=== PATIENT | female | born 1945 | race Caucasian/White ===

== ENCOUNTER 2024-06-28 07:23 | Emergency (ER) | payer MEDICARE, BC, SELFPAY ==
[2024-06-28 07:38] VITALS: BP 124/79; PULSE 74; RESP 18; TEMP 36.9; O2SAT 97; BMI 19.9
[2024-06-28 08:07] LABS: Collection Type, Urine Clean Catch
[2024-06-28 08:44] LABS: Bacteria,Urine 1+; Bilirubin,Urine Negative (Negative); Blood,Urine 3+ (Negative); Budding Yeast,Urine Present; Glucose, Urine Negative (Negative); Ketones,Urine Negative (Negative); Leukocyte Esterase,Urine Positive (Negative); Nitrite,Urine Negative (Negative); PH,Urine 7.5 (5.0-7.0); Protein,Urine 2+ (Neg - Trace); RBC,Urine 927 /hpf (0-3); Specific Gravity,Urine 1.019 (1.001-1.035); Squamous Epithelial Cell,Urine 5 /hpf (0-5); Urobilinogen,Urine Negative mg/dL (0.0-1.0); WBC,Urine 2437 /hpf (0-5)
[2024-06-28 08:49] LABS: Color,Urine Lt Yellow (Lt Yel-Yel)
[2024-06-28 08:50] LABS: Clarity,Urine Cloudy (Clear/Hazy); Culture Indicated,Urine Yes
--- NOTE | 2024-06-28 08:50 | EDNOTE_ITS ---
ED Female Urogenital RME/HPI General Chief complaint: Urogenital-Female Stated complaint: Painful urination X 2 days Time Seen by Provider: 06/28/24 07:31 Arrival date/time: 06/28/24 07:23 78-year-old female presents the emergency department complains of dysuria ongoing x 2 days patient reports no nausea no vomiting no fever and no back pain Limitations: no limitations Related Data Home Medications ?Medication ?Instructions ?Recorded ?Confirmed fluticasone propionate 50 50 mcg intranasal DAILY 07/09/19 01/20/23 mcg/actuation nasal spray,suspension (Flonase Allergy Relief) valsartan 80 mg tablet (Diovan) 80 mg PO QDAY 07/09/19 01/20/23 Previous Rx's ?Medication ?Instructions ?Recorded ciprofloxacin HCl 500 mg tablet 500 mg PO BID 7 days #14 tabs 06/28/24 fluconazole 150 mg tablet 150 mg PO Q3D 1 dose #1 tab 06/28/24 ibuprofen 600 mg tablet 600 mg PO Q6H #30 tabs 06/28/24 phenazopyridine 100 mg tablet 100 mg PO TID 2 days #6 tabs 06/28/24 (Pyridium) Allergies Allergy/AdvReac Type Severity Reaction Status Date / Time valsartan Allergy Severe Hives Verified 01/20/23 10:16 Penicillins Allergy Verified 07/10/19 12:45 Review of Systems Review of Systems Systems Reviewed: All systems reviewed, normal except as documented Constitutional Constitutional: Reports system reviewed and no additional complaints, except as documented, Denies fever(s) and Denies headache(s) Eyes Eyes: Reports system reviewed and no additional complaints, except as documented and Denies blurry vision ENT Ears, Nose, Mouth, and Throat: Reports system reviewed and no additional complaints, except as documented, Denies headache(s), Denies nasal congestion and Denies nasal discharge Cardiovascular Cardiovascular: Reports system reviewed and no additional complaints, except as documented, Denies chest pain and Denies dyspnea Respiratory Respiratory: Reports system reviewed and no additional complaints, except as documented, Denies chest congestion, Denies cough and Denies dyspnea Gastrointestinal Gastrointestinal: Reports system reviewed and no additional complaints, except as documented and Denies abdominal pain Genitourinary Genitourinary: Reports system reviewed and no additional complaints, except as documented, Reports dysuria and Reports pelvic pain Integumentary/Breasts Skin/Breast: Reports system reviewed and no additional complaints, except as documented and Denies rash Neurologic Neurologic: Reports system reviewed and no additional complaints, except as documented, Reports as per HPI and Denies headache(s) Past Medical History Past Medical History NEUROLOGIC: Negative Neurological Disorders CARDIAC: Negative Cardiac Disorders ED Exam General Limitations: Present no limitations General appearance: Present alert and in no apparent distress Head Head exam: Present atraumatic Eye Eye exam: Present normal appearance, PERRL and EOMI ENT ENT exam: Present normal exam, normal oropharynx and mucous membranes moist Neck Neck exam: Present normal inspection, full ROM and trachea midline Chest Chest inspection: Present normal inspection and symmetric chest wall rise Respiratory Respiratory exam: Present normal lung sounds bilaterally; Absent respiratory distress Cardiovascular Cardiovascular exam: Present regular rate, normal rhythm and normal heart sounds Abdominal Exam Abdominal exam: Present soft and normal bowel sounds; Absent distention, tenderness, guarding, rebound or rigidity Extremities Exam Extremities exam: Present normal inspection and full ROM Back Exam Back exam: Present normal inspection and full ROM Neurological Exam Neurological exam: Present alert, oriented X3 and CN II-XII intact Psychiatric Psychiatric exam: Present normal affect and normal mood Skin Skin exam: Present warm, dry, intact and normal color Course Quality Measures none Orders Category Date Time Status UA, C/S IF [Urinalysis, C/S if Indicated] Stat Lab 06/28/24 07:58 Completed Urine Culture Stat Lab 06/28/24 07:58 Received Fluconazole [Diflucan] Med 06/28/24 08:50 Discontinued 150 mg PO X1 ONE Lidocaine 1% 20 ml [Xylocaine 1% 20 ML] Med 06/28/24 08:53 Discontinued 2.1 ml INFL X1 ONE cefTRIAXone [Rocephin] Med 06/28/24 08:53 Discontinued 1,000 mg IM X1 ONE Vital Signs Vital signs: Vital Signs Temperature 98.5 F 06/28/24 07:38 Pulse Rate 74 06/28/24 07:38 Respiratory Rate 18 06/28/24 07:38 Blood Pressure 124/79 06/28/24 07:38 Pulse Oximetry (%) 97 06/28/24 07:38 Oxygen Delivery Method Room Air 06/28/24 07:38 O2 saturation 97% room air within normal limits Urogenital - Female MDM Narrative MDM Narrative:: 78-year-old female presents the emergency department complains of dysuria ongoing x 2 days patient reports no nausea no vomiting no fever and no back pain On exam patient does not appear ill or toxic and in no acute distress patient has soft nontender abdomen patient does report pelvic pain On exam patient has no CVA tenderness Patient afebrile hemodynamically stable Urinalysis obtained consistent with UTI and yeast infection Patient given Rocephin here as well as Diflucan Patient instructed to return tomorrow for repeat injection of Rocephin At time of discharge patient well-appearing and in no acute distress Patient data External records reviewed:: [facility] previous records Clinical information provided by:: patient Social determinants that could affect healthcare access:: none Patient has the following chronic illnesses:: None How is presenting disease/condition affected by chronic disease/condition?: no chronic disease Evaluation data The following diagnostics were reviewed and interpreted by me:: lab results Lab and/or radiology exams considered but not ordered:: Labs obtained Interpretation Summary: Reviewed by me Medications / Prescriptions Medications or Prescriptions considered but not ordered:: Given Medication administrations:: Medication Administration History Discontinued Medications Ceftriaxone Sodium (Ceftriaxone Sod Inj 1,000 Mg Vial) 1,000 mg IM X1 ONE Stop: 06/28/24 08:54 Last Admin: 06/28/24 09:00 Dose: 1,000 mg Documented By: ALEJANDRO Fluconazole (Fluconazole 150 Mg Tablet) 150 mg PO X1 ONE Stop: 06/28/24 08:51 Last Admin: 06/28/24 08:59 Dose: 150 mg Documented By: ALEJANDRO Lidocaine HCl (Lidocaine Hcl 1% 20 Ml Vial) 2.1 ml INFL X1 ONE Stop: 06/28/24 08:54 Last Admin: 06/28/24 09:00 Dose: 2.1 ml Documented By: ALEJANDRO Given Consultations Consultation(s) initiated? (list below): No Diagnosis Urogenital Female Differential Diagnosis: urinary tract infection and cystitis Most likely diagnosis given after review of the tests above:: UTI Admission Indicated Admission indicated?: not indicated Admission Request Was there a request for admission?: No Disposition Plan Disposition Plan: Discharge Discharge Attestation Discharge Attestation: The patient and all family members were given an opportunity to ask questions and understood the discharge instructions. Discharge instructions specifically effects, indications for sooner follow up or return to the emergency department, and the expected course of current diagnosis. Patient condition: Stable Discharge Plan Plan Patient Disposition: HOME (Self Care) Disposition Comment: Stable Prescriptions/Referrals Prescriptions/Med Rec: New ciprofloxacin HCl 500 mg tablet 500 mg PO BID 7 Days Qty: 14 0RF phenazopyridine [Pyridium] 100 mg tablet 100 mg PO TID 2 Days Qty: 6 0RF ibuprofen 600 mg tablet 600 mg PO Q6H Qty: 30 0RF fluconazole 150 mg tablet 150 mg PO Q3D Qty: 1 0RF No Action valsartan [Diovan] 80 mg Tablet 80 mg PO QDAY Rx Instructions: only at PM fluticasone propionate [Flonase Allergy Relief] 50 mcg/actuation [place],Suspension 50 mcg intranasal DAILY Referrals: Lesly Mejias DO [Primary Care Provider] - 06/29/24 Problem List Clinical Impression: Urinary tract infection, Vaginal yeast infection Patient/Caregiver Discharge Instructions Education Materials: Anatomy of the Female Urinary Tract Additional Instructions: Please return tomorrow for repeat dose of antibiotics for worsening symptoms or concerns return to the ER immediately Print Language: Albanian Stand Alone Forms: Tsering Award Info., Patient Portal Info Letter PA/[employer] Supervising Physician EUNICE/CONNIE Supervising Physician: Dr Alfaro
[2024-06-28] MEDS: FLUCONAZOLE 150 MG TABLET PO (08:59)
[2024-06-28] MEDS: cefTRIAXone SOD INJ 1,000 MG VIAL 1000 MG IM (09:00)
[2024-06-28] MEDS: LIDOCAINE HCL 1% 20 ML VIAL 2.1 ML INFL (09:00)
== END 2024-06-28 09:29 | disposition home or self-care (01) ==
PROVIDERS: Nurse Practitioner Primary Care; Emergency Provider Emergency Medicine; PCP Internal Medicine
DX: N39.0 Urinary tract infection, site not specified (principal); B37.31 Acute candidiasis of vulva and vagina
CPT/HCPCS: 81001; 87077; 87086; 87186; 96372; 99283; J0696; J3490; A9270

== ENCOUNTER 2024-07-01 10:58 | Emergency (ER) | payer MEDICARE, BC, SELFPAY ==
[2024-07-01 11:29] VITALS: BP 174/75; PULSE 75; RESP 17; TEMP 36.6; O2SAT 97; BMI 19.2
--- NOTE | 2024-07-01 11:38 | EDNOTE_ITS ---
<Statement entered by Leia Desai MD - 07/08/24 14:45> As co-signing physician, I was present and available for consult prn. I concur with the plan and care as documented by the midlevel provider. ED General RME/HPI General Chief complaint: General Adult/Misc Complain Stated complaint: FOLLOW UP FOR UTI Time Seen by Provider: 07/01/24 11:30 Source: patient Arrival date/time: 07/01/24 10:58 78-year-old female with no known medical history presents to the emergency room with a chief complaint of needing an antibiotic shot for a follow-up for her UTI. Mode of arrival: ambulatory Limitations: no limitations Related Data Home Medications ?Medication ?Instructions ?Recorded ?Confirmed fluticasone propionate 50 50 mcg intranasal DAILY 07/09/19 01/20/23 mcg/actuation nasal spray,suspension (Flonase Allergy Relief) valsartan 80 mg tablet (Diovan) 80 mg PO QDAY 07/09/19 01/20/23 Previous Rx's ?Medication ?Instructions ?Recorded ciprofloxacin HCl 500 mg tablet 500 mg PO BID 7 days #14 tabs 06/28/24 fluconazole 150 mg tablet 150 mg PO Q3D 1 dose #1 tab 06/28/24 ibuprofen 600 mg tablet 600 mg PO Q6H #30 tabs 06/28/24 Allergies Allergy/AdvReac Type Severity Reaction Status Date / Time valsartan Allergy Severe Hives Verified 07/01/24 11:01 Penicillins Allergy Verified 07/01/24 11:01 Review of Systems Review of Systems Systems Reviewed: All systems reviewed, normal except as documented Constitutional Constitutional: Reports system reviewed and no additional complaints, except as documented, Denies fatigue, Denies fever(s), Denies headache(s) and Denies weakness Eyes Eyes: Reports system reviewed and no additional complaints, except as documented, Denies blurry vision and Denies change in vision ENT Ears, Nose, Mouth, and Throat: Reports system reviewed and no additional complaints, except as documented, Denies otalgia, Denies headache(s), Denies nasal congestion, Denies throat swelling and Denies vertigo Cardiovascular Cardiovascular: Reports system reviewed and no additional complaints, except as documented, Denies chest pain, Denies dyspnea and Denies dyspnea on exertion Respiratory Respiratory: Reports system reviewed and no additional complaints, except as documented, Denies chest congestion, Denies cough, Denies dyspnea, Denies dyspnea on exertion and Denies wheezing Gastrointestinal Gastrointestinal: Reports system reviewed and no additional complaints, except as documented, Denies abdominal pain, Denies cramping, Denies nausea and Denies vomiting Genitourinary Genitourinary: Reports system reviewed and no additional complaints, except as documented Musculoskeletal Musculoskeletal: Reports system reviewed and no additional complaints, except as documented and Denies back pain Integumentary/Breasts Skin/Breast: Reports system reviewed and no additional complaints, except as documented and Denies wounds Neurologic Neurologic: Reports system reviewed and no additional complaints, except as documented, Denies confusion, Denies headache(s), Denies lack of coordination, Denies vertigo and Denies weakness Psychiatric Psychiatric: Reports system reviewed and no additional complaints, except as documented, Denies anxiety, Denies confusion, Denies depression, Denies paranoia, Denies suicidal ideation and Denies tactile hallucinations Endocrine Endocrine: Reports system reviewed and no additional complaints, except as documented and Denies fatigue Hematologic/Lymphatic Hematologic/Lymphatic: Reports system reviewed and no additional complaints, except as documented and Denies lymphadenopathy Allergic/Immunologic Allergic/Immunologic: Reports system reviewed and no additional complaints, except as documented, Denies throat swelling, Denies urticaria and Denies wheezing Past Medical History Past Medical History NEUROLOGIC: Negative Neurological Disorders or Seizures CARDIAC: Positive Hypertension; Negative Cardiac Disorders or Congestive Heart Failure RESPIRATORY: Negative Chronic Obstructive Pulmonary Disease (COPD) GASTROINTESTINAL: Negative Gastrointestinal Disorders GENITOURINARY: Negative Genitourinary Disorders or Renal Disease MUSCULOSKELETAL: Positive Arthritis; Negative Musculoskeletal Disorders ENDOCRINE: Negative Endocrine Disorders, Diabetes Mellitus Type 1 or Diabetes Mellitus Type 2 HEMATOLOGIC: Negative Blood Disorders OTHER HISTORY: Negative Autoimmune Disease, Blood Transfusions, Blood Transfusion Reaction, Anesthesia Reactions, Organ Transplant, MRSA, Clostridium Difficile or Cancer Family History FAMILY HISTORY: Negative Family Neurologic Problems or Family Cardiac Disorders Surgical History SURGICAL: Positive Tonsillectomy; Negative Nephrectomy, Joint Replacement, Neurologic Surgery, Vasectomy or Organ Transplant Social History SMOKING STATUS: Never smoker SUBSTANCE USE: does not use ED Exam General Limitations: Present no limitations General appearance: Present alert and in no apparent distress Head Head exam: Present atraumatic Eye Eye exam: Present normal appearance, PERRL and EOMI ENT ENT exam: Present normal exam, normal oropharynx and mucous membranes moist Neck Neck exam: Present normal inspection, full ROM and trachea midline Chest Chest inspection: Present normal inspection and symmetric chest wall rise Respiratory Respiratory exam: Present normal lung sounds bilaterally Cardiovascular Cardiovascular exam: Present regular rate, normal rhythm and normal heart sounds Abdominal Exam Abdominal exam: Present soft and normal bowel sounds Extremities Exam Extremities exam: Present normal inspection and full ROM Back Exam Back exam: Present normal inspection and full ROM Neurological Exam Neurological exam: Present alert, oriented X3 and CN II-XII intact Psychiatric Psychiatric exam: Present normal affect and normal mood Skin Skin exam: Present warm, dry, intact and normal color Course Quality Measures none Orders Category Date Time Status cefTRIAXone [Rocephin] 1,000 mg Med 07/01/24 11:37 Discontinued Lidocaine 1% 20 ml [Xylocaine 1% 20 ML] 2.1 ml IM X1 Vital Signs Vital signs: Vital Signs Temperature 97.9 F 07/01/24 11:29 Pulse Rate 75 07/01/24 11:29 Respiratory Rate 17 07/01/24 11:29 Blood Pressure 174/75 H 07/01/24 11:29 Pulse Oximetry (%) 97 07/01/24 11:29 Oxygen Delivery Method Room Air 07/01/24 11:29 O2 saturation 97% within normal limits [facility] Patient data External records reviewed:: [facility] previous records Clinical information provided by:: patient Social determinants that could affect healthcare access:: none Patient has the following chronic illnesses:: No chronic illness How is presenting disease/condition affected by chronic disease/condition?: no chronic disease Evaluation data The following diagnostics were reviewed and interpreted by me:: lab results and radiology exam(s) Lab and/or radiology exams considered but not ordered:: Labs and radiology exams considered and ordered Interpretation Summary: N/A Medications Medications considered but not ordered:: Medication given Medication administrations:: Medication Administration History Discontinued Medications Ceftriaxone Sodium 1,000 mg/ (Lidocaine HCl 2.1 ml) 0 mg IM X1 ONE Stop: 07/01/24 11:38 Last Admin: 07/01/24 12:00 Dose: 1,000 mg Documented By: THOM Medication given Consultations Consultation(s) initiated? (list below): No Diagnosis Differential Diagnosis ED Complaint MDM: Urinary tract infection/fungal infection Most likely diagnosis given after review of the tests above:: Urinary tract infection Admission Indicated Admission indicated?: not indicated Explain why admission is indicated or not indicated:: N/A Admission Request Was there a request for admission?: No Disposition Plan Disposition Plan: Discharge Discharge Attestation Discharge Attestation: The patient and all family members were given an opportunity to ask questions and understood the discharge instructions. Discharge instructions specifically effects, indications for sooner follow up or return to the emergency department, and the expected course of current diagnosis. Patient condition: Stable Medical Decision Making MDM Narrative MDM Narrative: 78-year-old female with no known medical history presents to the emergency room with a chief complaint of needing an antibiotic shot for a follow-up for her UTI. Clinically the patient appears nontoxic and in no apparent distress. Physical examination shows no abdominal pain or tenderness. Patient states her symptoms have gotten better since her last visit. Patient states she is only here because her provider told her to return in 2 days for repeat antibiotic shot. Another shot of Rocephin was given and the patient was discharged patient was educated to follow-up with primary care provider and return to the emergency room for any evidence of worsening signs or symptoms. Differential Diagnosis Differential Diagnosis: Urinary tract infection/fungal infection Discharge Plan Plan Patient Disposition: HOME (Self Care) Disposition Comment: Stable Prescriptions/Referrals Prescriptions/Med Rec: No Action valsartan [Diovan] 80 mg Tablet 80 mg PO QDAY Rx Instructions: only at PM fluticasone propionate [Flonase Allergy Relief] 50 mcg/actuation S [place],Suspension 50 mcg intranasal DAILY ciprofloxacin HCl 500 mg tablet 500 mg PO BID 7 Days Qty: 14 0RF ibuprofen 600 mg tablet 600 mg PO Q6H Qty: 30 0RF fluconazole 150 mg tablet 150 mg PO Q3D Qty: 1 0RF Problem List Clinical Impression: Urinary tract infection Patient/Caregiver Discharge Instructions Education Materials: ED CYSTITIS Female Adult Additional Instructions: Please follow-up with your primary care provider in the next 24 to 48 hours. For any evidence of worsening signs or symptoms please return to the emergency room immediately Print Language: Cymraes Stand Alone Forms: Tsering Award Info., Patient Portal Info Letter PA/CONNIE Supervising Physician PA/CONNIE Supervising Physician: Dr. DESAI
[2024-07-01] MEDS: cefTRIAXone 1,000 MG, LIDOCAINE 1% 20 ML 2.1 ML IM (12:00)
== END 2024-07-01 12:06 | disposition home or self-care (01) ==
LOC: SERX 12:09
PROVIDERS: Emergency Provider Emergency Medicine
DX: N39.0 Urinary tract infection, site not specified (principal)
CPT/HCPCS: 96372; 99283; J0696; J3490

== ENCOUNTER → 2024-09-21 | Outpatient (CLI) | payer MEDICARE, BC, SELFPAY ==
--- NOTE | 2024-09-21 09:45 | XR_ITS ---
Examination: Screening digital mammography, bilateral Computer aided detection 3-D breast Tomosynthesis, bilateral Date and time of exam: September 21, 2024 0940 hours Indication: Screening Technique: Nonmagnified MLO, CC views of the breasts to been obtained, reconstructed from 3-D Tomosynthesis images. R2 computer aided detection program utilized for evaluation of suspicious masses and/or abnormal calcifications. 3-D Tomosynthesis images obtained. Findings: The breasts are heterogeneously dense, which may obscure small masses Breast biopsy marker upper outer left breast Highly suspicious for very large focus of more this microcalcifications upper outer quadrant right breast Suspicious focus microcalcifications upper outer left breast Impression: BI-RADS Category 0: Incomplete: Need additional imaging evaluation Recommend follow-up magnification spot compression films of bilateral breast suspicious microcalcifications as above Recommend bilateral breast sonography follow-up to complete the workup
== END | disposition home or self-care (01) ==
LOC: CDIM 09:23
PROVIDERS: Referring Provider Internal Medicine; Visit Provider Internal Medicine
DX: Z12.31 Encounter for screening mammogram for malignant neoplasm of breast (principal); R92.8 Other abnormal and inconclusive findings on diagnostic imaging of breast; R92.0 Mammographic microcalcification found on diagnostic imaging of breast
CPT/HCPCS: 77063; 77067

== ENCOUNTER → 2024-10-26 | Outpatient (CLI) | payer MEDICARE, BC, SELFPAY ==
[2024-10-26 08:37] LABS: Basophils % (Auto) 1 % (0-2.5); Eosinophils # (Auto) 0.3 Thou/mm3 (0.0-0.5); Eosinophils % (Auto) 5 % (0-10); Hematocrit 39.3 % (36.0-46.0); Hemoglobin 13.8 g/dL (12.0-16.0); Immature Granulocytes % (Auto) 0 % (0-0); Immature Granulocytes Auto 0.01 Thou/mm3 (0.00-0.00); Lymphocytes # (Auto) 1.7 Thou/mm3 (1.0-4.8); Lymphocytes % (Auto) 29 % (10-50); Mean Corpuscular HGB Conc 35.1 g/dl (31.0-37.0); Mean Corpuscular Volume 94 fL (80-100); Monocytes # (Auto) 0.7 Thou/mm3 (0.0-0.8); Monocytes % (Auto) 11 % (0-12); Neutrophils # (Auto) 3.1 Thou/mm3 (1.8-7.7); Neutrophils % (Auto) 54 % (37-80); Nucleated Red Blood Cell % 0 /100 WBC (0); Platelet Count 268 Thou/mm3 (140-440); RDW Standard Deviation 46.3 fL (36.4-46.3); Red Blood Count 4.18 Miln/mm3 (4.00-5.20); White Blood Count 5.8 Thou/mm3 (3.6-11.0)
[2024-10-26 09:09] LABS: Alanine Aminotransferase 15 U/L (10-49); Albumin, Serum 4.4 gm/dL (3.4-4.8); Albumin/Globulin Ratio 1.8 (1.2-2.2); Alkaline Phosphatase 51 U/L (46-116); Anion Gap 4 (7-16); Aspartate Amino Transferase 21 U/L (0-34); BUN/Creatinine Ratio 13 Ratio (12-20); Bilirubin,Total 0.6 mg/dL (0.3-1.2); Blood Urea Nitrogen 13 mg/dL (9-23); Calcium 9.5 mg/dL (8.3-10.6); Calcium (Corrected) 9.5 mg/dL (8.5-10.1); Carbon Dioxide 29.8 mMol/L (20.0-31.0); Cardiac Risk Estimate 3.3 RATIO (3.7-5.6); Chloride 104 mMol/L (98-107); Cholesterol 198 mg/dL (132-200); Free T4 (Free Thyroxine) 1.08 ng/dL (0.89-1.76); Globulin 2.5 gm/dL (2.3-3.5); Glucose 87 mg/dL (74-106); HDL Cholesterol 60 mg/dL (40-60); LDL Cholesterol,Calculated 126 mg/dL (0-130); Osmolality,Calculated 274 (275-295); Sodium 138 mMol/L (136-145); Total Protein 6.9 gm/dL (5.7-8.2); Triglycerides 60 mg/dL (30-150); eGFR 57 See Note
[2024-10-26 09:23] LABS: Vitamin D 25 Hydroxy Total 69.9 ng/mL (7.3-40.2)
[2024-10-31 07:18] LABS: T3,Total* 101 ng/dL (76-181)
== END | disposition home or self-care (01) ==
LOC: COPL 07:27
PROVIDERS: PCP Internal Medicine; Referring Provider Internal Medicine; Visit Provider Internal Medicine
DX: E03.9 Hypothyroidism, unspecified (principal); I10 Essential (primary) hypertension; M81.0 Age-related osteoporosis without current pathological fracture
CPT/HCPCS: 36415; 80053; 80061; 82306; 84439; 84443; 84480; 85025

== ENCOUNTER → 2024-11-07 | Outpatient (CLI) | payer MEDICARE, BC, SELFPAY ==
--- NOTE | 2024-11-07 14:15 | XR_ITS ---
Examination: Breast ultrasound complete, bilateral Date and time of exam: November 07, 2024 1442 hours INDICATIONS: Suspicious microcalcifications upper outer quadrant right breast on mammogram September 21, 2024 Technique: Real-time grayscale ultrasonographic imaging bilateral breasts, including all 4 quadrants as well as nipple retroareolar and axillary regions. Findings: Sonographic images right breast No cystic or solid mass Sonographic images left breast 2:00 cyst 5 x 5 mm, no solid nodules IMPRESSION: BI-RADS Category 2: Benign findings
--- NOTE | 2024-11-07 15:15 | XR_ITS ---
Examination: Diagnostic digital mammography, bilateral Computer aided detection 3-D breast Tomosynthesis, bilateral Date and time of exam: November 07, 2024 1512 hours INDICATIONS: Mammogram September 21, 2024 grouped microcalcifications upper outer right breast upper outer left breast Technique: Nonmagnified MLO, CC views of the breasts to been obtained, reconstructed from 3-D Tomosynthesis images. R2 computer aided detection program utilized for evaluation of suspicious masses and/or abnormal calcifications. 3-D Tomosynthesis images obtained. Findings: The breasts are heterogeneously dense, which may obscure small masses Suspicious microcalcifications are confirmed upper outer quadrant right breast Impression: BI-RADS Category 4: Suspicious for malignancy Suspicious microcalcifications are confirmed upper outer right breast, biopsy is needed to exclude breast carcinoma, these calcifications are amenable to stereotactic breast biopsy for diagnosis.
== END | disposition home or self-care (01) ==
LOC: CDIM 14:04
PROVIDERS: PCP Internal Medicine; Referring Provider Internal Medicine; Visit Provider Internal Medicine
DX: R92.343 Mammographic extreme density, bilateral breasts (principal); R92.0 Mammographic microcalcification found on diagnostic imaging of breast; N60.02 Solitary cyst of left breast
CPT/HCPCS: 76641; 77062; 77066; G0279

== ENCOUNTER → 2024-12-14 | Outpatient (CLI) | payer MEDICARE, BC, SELFPAY ==
--- NOTE | 2024-12-14 15:30 | XR_ITS ---
Examination: Retroperitoneal ultrasound, complete Technique: Multiple high resolution grayscale images of the retroperitoneum obtained, including kidneys and bladder. Exam date and time:December 14, 2024 1517 hours INDICATIONS: Acute renal insufficiency on laboratory examination October 26, 2024 FINDINGS: Right kidney 8.2 cm renal cortex 0.9 cm Left kidney 8.6 cm renal cortex 1.4 cm Mild renal parenchymal scar formation No bladder mass Bladder prevoid volume 105 cc IMPRESSION: Bilateral renal cortical thinning Mild bilateral renal parenchymal scar formation
[2024-12-14 16:18] LABS: Collection Type, Urine Clean Catch
[2024-12-14 16:45] LABS: Bilirubin,Urine Negative (Negative); Blood,Urine Negative (Negative); Budding Yeast,Urine Present; Clarity,Urine Clear (Clear/Hazy); Color,Urine Lt-Yellow (Lt Yel-Yel); Glucose, Urine Negative (Negative); Ketones,Urine Negative (Negative); Leukocyte Esterase,Urine Positive (Negative); Nitrite,Urine Negative (Negative); PH,Urine 7.5 (5.0-7.0); Protein,Urine Negative (Neg - Trace); RBC,Urine 1 /hpf (0-3); Specific Gravity,Urine 1.007 (1.001-1.035); Squamous Epithelial Cell,Urine < 1 /hpf (0-5); Urobilinogen,Urine Negative mg/dL (0.0-1.0); WBC,Urine 39 /hpf (0-5)
[2024-12-14 16:58] LABS: Parathyroid Hormone Intact 33.3 pg/ml (18.5-88.0)
[2024-12-14 16:59] LABS: Creatinine MALB Rnd Ur 21 mg/dL (30-125); Microalbumin, Random Urine < 3 mg/L (0-300)
[2024-12-14 17:00] LABS: Albumin, Serum 4.2 gm/dL (3.4-4.8); Anion Gap 8 (7-16); BUN/Creatinine Ratio 15 Ratio (12-20); Blood Urea Nitrogen 15 mg/dL (9-23); Calcium 9.4 mg/dL (8.3-10.6); Calcium (Corrected) 9.4 mg/dL (8.5-10.1); Carbon Dioxide 30.5 mMol/L (20.0-31.0); Chloride 100 mMol/L (98-107); Glucose 89 mg/dL (74-106); Osmolality,Calculated 275 (275-295); Phosphorous 3.9 mg/dL (2.4-5.1); Potassium 3.9 mMol/L (3.4-5.1); Sodium 138 mMol/L (136-145); eGFR 57 See Note
== END | disposition home or self-care (01) ==
LOC: CDIM 15:45 → COPL 15:48
PROVIDERS: PCP Internal Medicine; Referring Provider Internal Medicine; Visit Provider Internal Medicine
DX: I12.9 Hypertensive chronic kidney disease with stage 1 through stage 4 chronic kidney disease, or unspecified chronic kidney disease (principal); N17.9 Acute kidney failure, unspecified; N18.31 Chronic kidney disease, stage 3a
CPT/HCPCS: 36415; 76770; 80069; 81001; 82043; 82570; 83970

== ENCOUNTER → 2025-05-18 | Outpatient (CLI) | payer MEDICARE, BC, SELFPAY ==
[2025-05-18 10:20] LABS: Basophils # (Auto) 0.1 Thou/mm3 (0.0-0.2); Basophils % (Auto) 1 % (0-2.5); Eosinophils # (Auto) 0.2 Thou/mm3 (0.0-0.5); Eosinophils % (Auto) 3 % (0-10); Hematocrit 38.1 % (36.0-46.0); Hemoglobin 12.7 g/dL (12.0-16.0); Immature Granulocytes Auto 0.02 Thou/mm3 (0.00-0.00); Lymphocytes # (Auto) 1.7 Thou/mm3 (1.0-4.8); Lymphocytes % (Auto) 24 % (10-50); Mean Corpuscular HGB Conc 33.3 g/dl (31.0-37.0); Mean Corpuscular Hemoglobin 32.0 pg (25.0-35.0); Mean Corpuscular Volume 96 fL (80-100); Monocytes # (Auto) 0.7 Thou/mm3 (0.0-0.8); Monocytes % (Auto) 11 % (0-12); Neutrophils # (Auto) 4.1 Thou/mm3 (1.8-7.7); Neutrophils % (Auto) 61 % (37-80); Nucleated Red Blood Cell # 0.00 Thou/mm3 (0.00-0.00); Nucleated Red Blood Cell % 0 /100 WBC (0); Platelet Count 244 Thou/mm3 (140-440); RDW Standard Deviation 48.1 fL (36.4-46.3); Red Blood Count 3.97 Miln/mm3 (4.00-5.20); White Blood Count 6.8 Thou/mm3 (3.6-11.0)
[2025-05-18 10:39] LABS: Parathyroid Hormone Intact 31.4 pg/ml (18.5-88.0)
[2025-05-18 10:40] LABS: T4 (Thyroxine) 5.6 mcg/dL (4.5-10.9)
[2025-05-18 10:42] LABS: Vitamin D 25 Hydroxy Total 62.0 ng/mL (7.3-40.2)
[2025-05-18 10:45] LABS: Alanine Aminotransferase 14 U/L (10-49); Albumin, Serum 4.5 gm/dL (3.4-4.8); Albumin/Globulin Ratio 2.4 (1.2-2.2); Alkaline Phosphatase 52 U/L (46-116); Anion Gap 9 (7-16); Aspartate Amino Transferase 25 U/L (0-34); BUN/Creatinine Ratio 10 Ratio (12-20); Bilirubin,Total 0.7 mg/dL (0.3-1.2); Blood Urea Nitrogen 11 mg/dL (9-23); Calcium 9.7 mg/dL (8.3-10.6); Calcium (Corrected) 9.7 mg/dL (8.5-10.1); Carbon Dioxide 28.6 mMol/L (20.0-31.0); Chloride 104 mMol/L (98-107); Creatinine (Component) 1.1 mg/dL (0.6-1.3); Free T4 (Free Thyroxine) 1.23 ng/dL (0.89-1.76); Globulin 1.9 gm/dL (2.3-3.5); Glucose 85 mg/dL (74-106); Osmolality,Calculated 281 (275-295); Potassium 5.1 mMol/L (3.4-5.1); Sodium 142 mMol/L (136-145); Thyroid Stimulating Hormone 2.05 uIU/mL (0.55-4.78); Total Protein 6.4 gm/dL (5.7-8.2); eGFR 51 See Note
== END | disposition home or self-care (01) ==
LOC: COPL 09:43
PROVIDERS: PCP Internal Medicine; Referring Provider Internal Medicine; Visit Provider Internal Medicine
DX: E55.9 Vitamin D deficiency, unspecified (principal); E03.8 Other specified hypothyroidism; N18.31 Chronic kidney disease, stage 3a; M81.0 Age-related osteoporosis without current pathological fracture
CPT/HCPCS: 36415; 80053; 82306; 83970; 84436; 84439; 84443; 85025

== ENCOUNTER → 2025-06-08 | Outpatient (CLI) | payer MEDICARE, BC, SELFPAY ==
--- NOTE | 2025-06-08 13:00 | XR_ITS ---
Examination: Diagnostic digital mammography, unilateral, right Computer aided detection 3-D breast Tomosynthesis, unilateral Date and time of exam: 06/08/2025, 12:56 p.m. Comparisons: 11/07/2024 Indications: August 2024, September 2024 Technique: Nonmagnified MLO, CC views of the right breast have been obtained, reconstructed from 3-D Tomosynthesis images. R2 computer aided detection program utilized for evaluation of suspicious masses and/or abnormal calcifications. 3-D Tomosynthesis images obtained. Technologist: Findings: There are scattered areas of fibroglandular density. Amorphous and pleomorphic calcifications throughout the upper outer quadrant in a segmental distribution. Interval placement of postbiopsy marker clip. No definite solid masses. . Impression: BI-RADS category 0: Incomplete assessment; need additional imaging evaluation Amorphous and pleomorphic calcifications upper outer quadrant in a segmental distribution. Interval placement post biopsy marker clip. I do not have the biopsy results. If biopsy results were negative I would likely deem these findings discordant based on current imaging. Recommend spot magnification views. BI-RADS Category 0. Additional imaging required.
== END | disposition home or self-care (01) ==
LOC: CDIM 12:35
PROVIDERS: PCP Internal Medicine; Referring Provider Student in an Organized Health Care Education/Training Program; Visit Provider Student in an Organized Health Care Education/Training Program
DX: R92.8 Other abnormal and inconclusive findings on diagnostic imaging of breast (principal); R92.0 Mammographic microcalcification found on diagnostic imaging of breast
CPT/HCPCS: 77061; 77065; G0279